=== PATIENT | female | born 1950 | race African-American/Black ===

== ENCOUNTER → 2017-06-09 | Outpatient (CLI) | payer MEDICARE, BC ==
[2016-10-28 09:43] VITALS: BP 106/64
[~2017-06-09] MED LIST: ASPI-630 PO; AZAT50TA PO; CHOL20002 PO; CHOL500016 PO; HYDR15FO RC; MELO15TA23 PO; NAPR220C4 PO; NAPR220T70 PO; ONDA8TAB9 PO; POLY17PO29 PO; SPIR25TA3 PO; TIZA4TAB PO
--- NOTE | 2017-06-09 11:57 | RAD ---
DATE: 06/09/2017 EXAM: DIGITAL SCREEN BILAT W/CAD HISTORY: Screening COMPARISON: 11/15/2015 This study was interpreted with the benefit of Computerized Aided Detection (CAD). FINDINGS: Breast Density: SCATTERED The breast parenchyma shows scattered fibroglandular densities. Breast parenchyma level B. There has not been a significant change in the appearance of the breasts compared to the previous exam. Biopsy clip is noted in the right breast. Benign-appearing calcifications are noted in both breasts. IMPRESSION: Benign findings BI-RADS CATEGORY: 2 BENIGN FINDING(S) RECOMMENDED FOLLOW-UP: 12M 12 MONTH FOLLOW-UP PQRS compliance statement: Patient information was entered into a reminder system with a target due date 06/09/2018 for the next mammogram. Mammography is a sensitive method for finding small breast cancers, but it does not detect them all and is not a substitute for careful clinical examination. A negative mammogram does not negate a clinically suspicious finding and should not result in delay in biopsying a clinically suspicious abnormality. "Our facility is accredited by the [employer] Mammography Program."
== END | disposition home or self-care (01) ==
LOC: MAMMO 10:19
PROVIDERS: ATTEND Internal Medicine
DX: Z12.31 Encounter for screening mammogram for malignant neoplasm of breast (principal)
CPT/HCPCS: G0202; 77067

== ENCOUNTER → 2018-06-10 | Outpatient (CLI) | payer MEDICARE, BC | END | disposition home or self-care (01) | LOC: MAMMO 07:46 | DX: Z12.31 Encounter for screening mammogram for malignant neoplasm of breast (principal) | CPT/HCPCS: 77063; 77067 ==

== ENCOUNTER → 2018-10-06 | Day surgery (SDC) | payer MEDICARE, BC ==
[~2018-10-06] MED LIST changes: -CHOL20002 PO; +CHOL200059 PO; +GLYCOPYRROLATE 1 MG/5 ML VIAL. ONE; +IV RINGERS,LACTATED 1000ML 1,000 ML IV SCH; +PROPOFOL 40 ML IV ONE; -SPIR25TA3 PO; +SPIR25TA5 PO; +ePHEDrine PF IN SALINE 50 MG/5 ML DISP.SYRIN IV ONE
--- NOTE | 2018-10-06 08:12 | PDOC1 ---
HISTORY & PHYSICAL H&P Harman Ying [id number] 1950 09/16/2018 11:40 AM 11/[address] [employer] [facility], [facility] OUR PATIENTS COME FIRST [address] [place] [id number] Ph. [phone] Patient: Harman Ying Date of : 1950 Date: 09/16/2018 11:40 AM Visit Type: Office Visit This 68 year old female presents for ulcerative colitis. History of Present Illness: 1. ulcerative colitis Here for follow up for UC. Has been doing okay. No rectal bleeding or any diarrhea. Has been taking Azathioprine. Has been having blood work for every 3 months and has been okay. Needs surveillance colonoscopy. We will schedule it this time. Patient is aware of my senior living and will see other GI next year to establish care. INTAKE COMMENTS: Intake Comments: patient states she is here for a colonoscopy PROBLEM LIST: Problem Description Onset Date Chronic Clinical Status Notes Ulcerative colitis 06/24/2012 Y Mapped from [employer] Chronic Conditions table on by the ICD9 to SNOMED Bulk Mapping Utility. The mapped diagnosis code was Ulcerative colitis, unspecified, 556.9, added by Anita Ray, with responsible provider Gema Steve. Onset date 06/24/2012; last addressed on 12/2013. [place] ulcerative colitis without complication 10/04/2015 PAST MEDICAL/SURGICAL HISTORY (Detailed) Disease/disorder Onset Date Management Date Comments Hemorrhoids 06/11/2012 colonoscopy with biopsy 06/11/2012 Colonoscopy 2005 Colonoscopy 2000 Colonoscopy 1998 Colonoscopy 1997 Colonoscopy 1992 Hypertension Ulcerative Colitis Family History (Detailed) Relationship Family Member Name Age at Condition Onset Age Cause of Sister N Heart problems N Social History: (Detailed) The patient is right-handed. Preferred language is Ivorian. Language spoken at home is Ivorian. 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 HOME ENVIRONMENT Housing status is stable/permanent. Tobacco use status: Never smoked tobacco. Smoking status: Never smoker. TOBACCO/VAPING EXPOSURE No passive smoke exposure. ALCOHOL There is a history of alcohol use. consumed yearly. CAFFEINE The patient uses caffeine: coffee and tea. - 5 cups a day. EXPERIENCE Patient has no experience. Medications (active prior to today) Medication Name Sig Description Start Date Stop Date Refilled Rx Elsewhere Vitamin D 5,000 unit Tab // Y SPIRONOLACT/HYDROCHLOROTHIAZID take 1 tablet by oral route every day // Y tizanidine 4 mg tablet take 1 tablet by oral route every 8 hours as needed not to exceed 3 doses in 24 hours // Y ondansetron 8 mg disintegrating tablet take 1 tablet by oral route every 8 hours for [address] on top of the tongue where it will dissolve, then swallow // Y aspirin 81 mg tablet,delayed release take 1 tablet by oral route every day // Y Cortifoam 10 % (80 mg) rectal apply rectally once a day. 10/09/2016 10/09/2016 N Imuran 50 mg tablet TAKE 2 TABLETS (100 MG) DAILY 11/10/2017 11/10/2017 N Medication Reconciliation Medications reconciled today. Medication Reviewed Adherence Medication Name Sig Desc Elsewhere Status taking as directed Vitamin D 5,000 unit Tab Y Verified taking as directed SPIRONOLACT/HYDROCHLOROTHIAZID take 1 tablet by oral route every day Y Verified taking as directed ondansetron 8 mg disintegrating tablet take 1 tablet by oral route every 8 hours for [address] on top of the tongue where it will dissolve, then swallow Y Verified taking as directed tizanidine 4 mg tablet take 1 tablet by oral route every 8 hours as needed not to exceed 3 doses in 24 hours Y Verified taking as directed Cortifoam 10 % (80 mg) rectal apply rectally once a day. N Verified taking as directed aspirin 81 mg tablet,delayed release take 1 tablet by oral route every day Y Verified taking as directed Imuran 50 mg tablet TAKE 2 TABLETS (100 MG) DAILY N Verified Medications (Added, Continued or Stopped today) Start Date Medication Directions PRN Status PRN Reason Instruction Stop Date aspirin 81 mg tablet,delayed release take 1 tablet by oral route every day N 10/09/2016 Cortifoam 10 % (80 mg) rectal apply rectally once a day. N 11/10/2017 Imuran 50 mg tablet TAKE 2 TABLETS (100 MG) DAILY N ondansetron 8 mg disintegrating tablet take 1 tablet by oral route every 8 hours for [address] on top of the tongue where it will dissolve, then swallow N SPIRONOLACT/HYDROCHLOROTHIAZID take 1 tablet by oral route every day N tizanidine 4 mg tablet take 1 tablet by oral route every 8 hours as needed not to exceed 3 doses in 24 hours N Vitamin D 5,000 unit Tab N Allergies: Ingredient Reaction (Severity) Medication Name Comment NO KNOWN ALLERGIES Review of Systems System Neg/Pos Details Constitutional Negative Chills, Fever and Malaise. ENMT Negative Sore throat. Eyes Negative Double vision. Respiratory Negative Dyspnea and Wheezing. Cardio Negative Chest pain and Irregular heartbeat/palpitations. GI Positive See HPI. GI Negative See HPI. Negative Dysuria and Hematuria. Endocrine Negative Cold intolerance and Heat intolerance. Psych Negative Anxiety. Integumentary Negative Hives and Rash. MS Negative Joint pain. Monster/Lymph Negative Easy bleeding and Easy bruising. Allergic/Immuno Negative Food allergies. Vital Signs Time BP mm/Hg Pulse /min Resp /min Temp F Ht ft Ht in Ht cm Wt lb Wt kg BMI kg/ m2 BSA m2 O2 Sat% 12:10 PM 130/80 104 16 97.9 5.0 5.00 165.10 185.00 83.915 30.79 1.96 93 Measured By Time Measured by 12:10 PM Aydee Swygert PHYSICAL EXAM: Exam Findings Details Constitutional Normal Well developed. Eyes Normal Conjunctiva - Right: Normal, Left: Normal. Sclera - Right: Normal, Left: Normal. Nasopharynx Normal Lips/teeth/gums - Normal. Neck Exam Normal Inspection - Normal. Thyroid gland - Normal. Respiratory Normal Inspection - Normal. Auscultation - Normal. Cardiovascular Normal Regular rate and rhythm. No murmurs, gallops, or rubs. Abdomen Normal Inspection - Normal. Anterior palpation - No guarding. No abdominal tenderness. No hepatic enlargement. No spleen enlargement. No hernia. No Ascites. Skin Normal Inspection - Normal. Extremity Normal No edema. Psychiatric Normal Orientation - Oriented to time, place, person & situation. Appropriate mood and affect. Assessment/Plan # Detail Type Description 1. Assessment Ulcerative pancolitis without complication (K51.00). Patient Plan schedule colonoscopy at . Continue Azathioprine for now. Provider Plan I had discussed my intention of senior living by the end of 2018. Patient was advised to consider relocating the gastrointestinal care to another physician as needed and as recommended. Plan Orders Further diagnostic evaluations ordered today include(s) Colonoscopy , flexible; diagnostic to be performed today. She is to schedule a follow-up visit with Gema Steve MD upon completion of work-up. Active Patient Care Team Members Name Contact Agency Type Support Role Relationship Active Date Inactive Date Specialty Neli Juarez Patient provider PCP Gema Steve encounter provider [facility] Document Electronically signed: Gema Steve MD 09/16/2018 02:33 PM Document generated by: Gema Steve 09/16/2018 Ksenia Mercado MD, [facility]; Nam Swenson MD Internal Medicine; Violeta Moncada MD, Internal Medicine; Aixa Steve MD Internal Medicine; Gema Steve MD, Gastroenterology; Alpesh Chong MD, Rheumatology, Veena Korey RAIL FILLER ------ 10/06/18 Patient seen and examined. No change in H&P. GEMA STEVE MD Oct 06, 2018 08:12
[2018-10-06 09:04] VITALS: BP 119/74
--- NOTE | 2018-10-07 15:09 | PATHOLOGY ---
[facility] Accession Number: [id number] . 01 Material submitted: . PART A: BIOPSY CECUM PART B: BIOPSY ASCENDING COLON PART C: BIOPSY TRANSVERSE COLON PART D: BIOPSY DESCENDING COLON PART E: SIGMOID COLON BIOPSY PART F: RECTAL BIOPSY . 01 Clinical history: . Hx of ulcerative colitis . 02 Diagnosis: A. Colon biopsies, cecum: - Segments of colonic mucosa negative for active chronic colitis and dysplasia. . B. Colon biopsies, ascending colon: - Segments of colonic mucosa negative for active chronic colitis and dysplasia. . C. Colon biopsies, transverse colon: - Segments of colonic mucosa negative for active chronic colitis and dysplasia. . D. Colon biopsies, descending colon: - Segments of colonic mucosa negative for active chronic colitis and dysplasia. . E. Colon biopsies, sigmoid colon: - Segments of colonic mucosa negative for active chronic colitis and dysplasia. . F. Colorectal biopsies, rectum: - Segments of rectal mucosa negative for active chronic colitis and dysplasia. . (JPM:mml; 10/07/18) [facility]/10/07/2018 . 02 Comment: Sections of the colon and rectal biopsies appear similar and reveal segments of colonic mucosa showing focal congestion. There is no evidence of an active chronic destructive colitis. There is no evidence of dysplasia or malignancy. . (JPM:mml; 10/07/18) . 02 Electronically signed: . Reese Valadez MD, Pathologist NPI- [id number] . 01 Gross description: . A. Received in formalin labeled "Harman Ying, BX cecum," are 3 segments of james soft tissue measuring 0.9 x 0.6 x 0.2 cm in aggregate dimensions and ranging from 0.4 to 0.5 cm in maximum dimension. The specimen is submitted entirely in cassette A1. . B. Received in formalin labeled "Ying, Bruneau, BX ascending colon," are 7 segments of james soft tissue measuring 1.8 x 1.4 x 0.2 cm in aggregate dimensions and ranging from 0.3 to 0.6 cm in maximum dimension. The specimen is submitted entirely in cassette B1. . C. Received in formalin labeled "Ying, Harman, BX transverse colon," are 6 segments of james soft tissue measuring 1.5 x 1.1 x 0.3 cm in aggregate dimensions and ranging from 0.3 to 0.5 cm in maximum dimension. The specimen is submitted entirely in cassette C1. . D. Received in formalin labeled "Ying, Harman, BX descending colon," are 4 segments of james soft tissue measuring 1.1 x 0.8 x 0.2 cm in aggregate dimensions and ranging from 0.4 to 0.6 cm in maximum dimension. The specimen is submitted entirely in cassette D1. . E. Received in formalin labeled "Ying, Harman, sigmoid colon biopsy," are 5 segments of james soft tissue measuring 1.4 x 1.3 x 0.2 cm in aggregate dimensions and ranging from 0.3 to 0.6 cm in maximum dimension. The specimen is submitted entirely in cassette E1. . F. Received in formalin labeled "Ying, Harman, rectal biopsy," are 3 segments of james soft tissue measuring 0.9 x 0.6 x 0.3 cm in aggregate dimensions and ranging from 0.3 to 0.5 cm in maximum dimension. The specimen is submitted entirely in cassette F1. (TSD; 10/06/2018) TOB/TOB . 02 Pathologist provided ICD-10: K63.89, Z87.19 . 02 CPT . 316013, 418687, 819667, 631687, 955703, 589168 Specimen Comment: A courtesy copy of this report has been sent to Specimen Comment: [phone], . Specimen Comment: Report sent to / DR VALDEZ Performed at: 01 [facility] [address], [place] [id number] MD Wayne Ohara MD Phone: [phone] Performed at: 02 [facility] [address] [place], [place] [id number] MD Reese Valadez MD Phone: [phone]
== END | disposition home or self-care (01) ==
LOC: SURG 07:07
PROVIDERS: ATTEND Internal Medicine Gastroenterology
DX: K63.89 Other specified diseases of intestine (principal); I10 Essential (primary) hypertension; Z98.890 Other specified postprocedural states; Z72.89 Other problems related to lifestyle; Z79.899 Other long term (current) drug therapy; Z79.82 Long term (current) use of aspirin
CPT/HCPCS: 45380; 88305; J2704; J3490; 45385

== ENCOUNTER → 2019-06-14 | Outpatient (CLI) | payer MEDICARE, BC ==
[2018-10-06 09:04] VITALS: BP 119/74
[~2019-06-14] MED LIST changes: -GLYCOPYRROLATE 1 MG/5 ML VIAL. ONE; -IV RINGERS,LACTATED 1000ML 1,000 ML IV SCH; -PROPOFOL 40 ML IV ONE; -ePHEDrine PF IN SALINE 50 MG/5 ML DISP.SYRIN IV ONE
--- NOTE | 2019-06-15 13:14 | RAD ---
EXAM: MAMMO BRENT SCREENING BILATERAL HISTORY: routine screening evaluation. COMPARISON: Prior mammographic imaging dating back to 12/13/2015 Bilateral CC and MLO views of the breasts were performed. Bilateral breast tomosynthesis was performed in CC and MLO projections. This study was interpreted with the benefit of Computerized Aided Detection (CAD). Breast Density: The breast parenchyma shows scattered fibroglandular densities. Breast parenchyma level B. FINDINGS: The nodular parenchymal pattern appears stable. Benign calcifications are present. Lumpectomy changes within the superior, lateral right breast are again seen. No suspicious enlarging masses, microcalcifications or architectural distortion is present to suggest malignancy in either breast. The visualized axillae are unremarkable. IMPRESSION: No mammographic evidence of malignancy. BI-RADS CATEGORY: 2 BENIGN FINDING(S) RECOMMENDED FOLLOW-UP: 12M 12 MONTH FOLLOW-UP Annual screening mammography is recommended, unless clinically indicated sooner based on symptoms or change in physical exam. PQRS compliance statement: Patient information was entered into a reminder system with a target due date for the next mammogram. Mammography is a sensitive method for finding small breast cancers, but it does not detect them all and is not a substitute for careful clinical examination. A negative mammogram does not negate a clinically suspicious finding and should not result in delay in biopsying a clinically suspicious abnormality. "Our facility is accredited by the [employer] Mammography Program." SABINAD
== END | disposition home or self-care (01) ==
LOC: MAMMO 09:54
PROVIDERS: ATTEND Physician Assistant Surgical
DX: Z12.31 Encounter for screening mammogram for malignant neoplasm of breast (principal); N64.89 Other specified disorders of breast
CPT/HCPCS: 77063; 77067

== ENCOUNTER → 2020-06-13 | Outpatient (CLI) | payer MEDICARE, BC ==
[2018-10-06 09:04] VITALS: BP 119/74
[~2020-06-13] MED LIST changes: -TIZA4TAB PO; +TIZA4TAB2 PO
--- NOTE | 2020-06-13 17:27 | RAD ---
EXAM: BILATERAL DIGITAL 3D SCREENING MAMMOGRAPHY. HISTORY: Routine mammographic screening. TECHNIQUE: Bilateral digital 3D and tomographic images were obtained in CC and MLO projections. Computer-aided detection was applied. COMPARISON: 06/14/2019, 06/10/2019. COMPOSITION: B. There are scattered areas of fibroglandular density. FINDINGS: There are no suspicious masses, microcalcifications or architectural distortion. Diffusely multinodular parenchymal pattern is stable. Coarse calcifications are benign. BI-RADS CATEGORY 2: Benign. RECOMMENDATION: 1. Routine screening mammography in one year. If mammography demonstrates dense breast tissue (heterogenously dense or extremely dense, category C or D), which could hide abnormalities, and if other risk factors for breast cancer have been identified, supplemental screening tests that may be suggested by the ordering physician may be of benefit. Dense breast tissue, in and of itself, is a relatively common condition. Therefore, this information is not provided to cause undue concern, but rather to raise awareness and to promote discussion with the referring physician regarding the presence of other risk factors, in addition to dense breast tissue. The results of this mammography examination is provided to the patient and referring physician. The patient should contact their referring physician if any questions or concerns exist regarding this report. PQRS compliance statement - Patient information was entered into a reminder system with a target due date for the next mammogram. "Our facility is accredited by the [employer] Mammography Program." Electronically signed by: Flower Gonzalez MD (06/13/2020 5:24 PM) [id number]
== END | disposition home or self-care (01) ==
LOC: MAMMO 12:55
PROVIDERS: ATTEND Family Medicine
DX: Z12.31 Encounter for screening mammogram for malignant neoplasm of breast (principal); N64.89 Other specified disorders of breast
CPT/HCPCS: 77063; 77067

== ENCOUNTER → 2021-06-14 | Outpatient (CLI) | payer MEDICARE, BC ==
[2018-10-06 09:04] VITALS: BP 119/74
--- NOTE | 2021-06-15 19:19 | RAD ---
DATE: 06/14/2021 EXAM: MAMMO BRENT SCREENING BILATERAL HISTORY: Screening COMPARISON: Prior exams dating back to 11/15/2015 This study was interpreted with the benefit of Computerized Aided Detection (CAD). Breast Density: SCATTERED The breast parenchyma shows scattered fibroglandular densities. Breast parenchyma level B. FINDINGS: Multiple bilateral benign-appearing masses are unchanged. No suspicious mass, calcifications, or architectural distortion. IMPRESSION: No evidence of malignancy. BI-RADS CATEGORY: 2 BENIGN FINDING(S) RECOMMENDED FOLLOW-UP: 12M 12 MONTH FOLLOW-UP PQRS compliance statement: Patient information was entered into a reminder system with a target due date for the next mammogram. Mammography is a sensitive method for finding small breast cancers, but it does not detect them all and is not a substitute for careful clinical examination. A negative mammogram does not negate a clinically suspicious finding and should not result in delay in biopsying a clinically suspicious abnormality. "Our facility is accredited by the [employer] Mammography Program."
== END ==
LOC: MAMMO 09:52
PROVIDERS: ATTEND Family Medicine
DX: Z12.31 Encounter for screening mammogram for malignant neoplasm of breast (principal)
CPT/HCPCS: 77063; 77067

== ENCOUNTER 2021-09-19 07:41 | Day surgery (SDC) | payer MEDICARE, BC ==
[~2021-09-19] VITALS: Ht 162.6 cm; Wt 79.5 kg
[~2021-09-19 07:41] MED LIST changes: +PROPOFOL 10 MG/ML (20ML) VIAL. IV ONE; +TIZA-75 PO; -TIZA4TAB2 PO
[2021-09-19 08:04] VITALS: BP 151/85
[2021-09-19] MEDS ORDERED: IV RINGERS,LACTATED 1000ML 1,000 ML IV SCH (08:15)
[2021-09-19 09:20] VITALS: BP 129/71
--- NOTE | 2021-09-19 20:21 | CONS ---
DATE OF CONSULTATION: 09/19/2021 UPDATED HISTORY AND PHYSICAL REFERRING PHYSICIAN: Gwendolyn Mancini MD REASON FOR CONSULTATION: Ulcerative colitis surveillance. HISTORY OF PRESENT ILLNESS: A 71-year-old -[place] female whose past medical history significant for ulcerative colitis, osteoporosis, gastroesophageal reflux disease, is seen for interval exam. Bowel habits are regular without diarrhea or constipation. There is no extraintestinal manifestations of IBD at this time. She does have formed stools and has been well maintained on azathioprine 100 mg daily. She is otherwise without additional complaints. PAST MEDICAL HISTORY: UC, anxiety, osteoarthrosis, GERD ALLERGIES: None. MEDICATIONS: Aspirin, azathioprine, vitamin D, spironolactone. FAMILY HISTORY: Significant for CVAs, diabetes with mother and sister, hypertension in multiple family members and colon polyps with sister. PAST SURGICAL HISTORY: Noncontributory. REVIEW OF SYSTEMS: Per records. PHYSICAL EXAMINATION: GENERAL: Reveals a well-nourished, well-developed -[place] female who is alert, cooperative, in no acute distress. VITAL SIGNS: Temperature 98, pulse 96, respiratory rate is 18. LUNGS: Clear. CARDIOVASCULAR: Reveals an S1, S2, without S3, S4 or appreciable murmur. ABDOMEN: Soft abdomen, normal bowel sounds, without appreciable hepatosplenomegaly. EXTREMITIES: Reveals no cyanosis, clubbing or edema.. IMPRESSION: Ulcerative colitis. PLAN: Surveillance exam is recommended at this time with biopsies for dysplasia. Risks and benefits of procedure have been discussed with the patient including risk of hemorrhage and perforation and is willing to proceed at this time. LEILANI/HILLARY/EVANGELIST DR: Gilma TID: [id number]
--- NOTE | 2021-09-21 18:22 | PATHOLOGY ---
[facility] Accession Number: [id number] . 01 Material submitted: . PART A: colon - RIGHT COLON BIOPSY. Modifiers: right PART B: colon - TRANSVERSE COLON BIOPSY. Modifiers: transverse PART C: colon - LEFT COLON BIOPSY. Modifiers: left . 01 Clinical history: . HX OF UC, CRC COLONOSCOPY INFLAMMATION . 02 Diagnosis: A. Right colon biopsies: - Colonic mucosa showing no evidence of active chronic colitis, dysplasia, or malignancy. . B. Transverse colon biopsies: - Colonic mucosa showing no evidence of active chronic colitis, dysplasia, or malignancy. . C. Left colon biopsies: - Segments of colonic mucosa showing no evidence of active chronic colitis, dysplasia, or malignancy. (JPM:catarina; 09/21/2021) [facility] [place] 1014 Local . 02 Comment: Sections of the right colon, transverse colon, and left colon biopsies appear similar and reveal multiple segments of colonic mucosa. The biopsies show no evidence of an active chronic colitis. There is no dysplasia or evidence of malignancy. (JPM:catarina; 09/21/2021) . 02 Electronically signed: . Reese Valadez MD, Pathologist NPI- [id number] . 01 Gross description: . A. The specimen is received in formalin, labeled "Lawton Ying, R colon biopsy". Received are multiple segments of pale james tissue ranging in size from 0.3-0.8 cm in maximum dimensions. The specimen is submitted entirely in cassette A1. . B. The specimen is received in formalin, labeled "Lawton Ying, transverse colon". Received are multiple segments of pale james tissue ranging in size from 0.3-0.5 cm in maximum dimensions. The specimen is submitted entirely in cassette B1. . C. The specimen is received in formalin, labeled "Isidro Cardenas colon biopsy". Received are multiple segments of pale james tissue ranging in size from 0.2-0.7 cm in maximum dimensions. The specimen is submitted entirely in cassette C1. (CAA; 09/20/2021) QAC/QAC 09/20/2021 0903 Local . 02 Pathologist provided ICD-10: Z87.19 . 02 CPT . 866810, 477696, 821130 Specimen Comment: A courtesy copy of this report has been sent to [phone] Specimen Comment: [id number] Specimen Comment: Report sent to / DR GOODMAN Performed at: 01 [facility] [address], [place] [id number] MD Sudhakar Mccormack MD Phone: [phone] [facility]formed at: 02 [facility] [address] [place], [place] [id number] MD Reese Valadez MD Phone: [phone]
== END 2021-09-19 09:35 | disposition home or self-care (01) ==
LOC: ENDOS 07:41
PROVIDERS: ATTEND Internal Medicine Gastroenterology
DX: K51.00 Ulcerative (chronic) pancolitis without complications (principal); K64.0 First degree hemorrhoids; K63.89 Other specified diseases of intestine; K21.9 Gastro-esophageal reflux disease without esophagitis; M81.0 Age-related osteoporosis without current pathological fracture; F41.9 Anxiety disorder, unspecified; I10 Essential (primary) hypertension; E78.00 Pure hypercholesterolemia, unspecified; M19.90 Unspecified osteoarthritis, unspecified site; Z87.19 Personal history of other diseases of the digestive system; Z87.891 Personal history of nicotine dependence; Z79.82 Long term (current) use of aspirin; Z79.899 Other long term (current) drug therapy; Z98.890 Other specified postprocedural states; Z20.822 Contact with and (suspected) exposure to COVID-19
CPT/HCPCS: 45380; 87426; J2704; 88305